=== PATIENT | female | born 1945 | race Caucasian/White ===

== ENCOUNTER 2021-05-17 14:09 | Emergency (ER) | payer MEDICAID, OTHER ==
[~2021-05-17] VITALS: Ht 167.6 cm; Wt 70.3 kg
[2021-05-17 16:33] VITALS: BP 128/53
== END 2021-05-17 17:09 | disposition short-term general hospital (02) ==
LOC: ER 14:09 → EDBD 14:09 → ER 17:09
DX: S52.532A Colles' fracture of left radius, initial encounter for closed fracture (principal); G93.6 Cerebral edema; K21.9 Gastro-esophageal reflux disease without esophagitis; I10 Essential (primary) hypertension; Z90.49 Acquired absence of other specified parts of digestive tract; Z90.710 Acquired absence of both cervix and uterus; V43.52XA Car driver injured in collision with other type car in traffic accident, initial encounter; Y93.89 Activity, other specified; Y92.488 Other paved roadways as the place of occurrence of the external cause; Y99.8 Other external cause status
CPT/HCPCS: 70450; 71045; 73110; 74176

== ENCOUNTER 2021-07-22 11:22 | Inpatient (IN) | payer OTHER ==
[~2021-07-22] VITALS: Ht 172.7 cm; Wt 76.7 kg
[2021-07-22] MEDS ORDERED: SODIUM CHLORIDE 0.9% 500 ML IV ONE (12:00)
[2021-07-22 12:13] LABS: Basophils # (auto) 0 10 ^3/uL (0-0.2); Basophils % (auto) 0.3 % (0.0-2.0); Eosinophils # (auto) 0 10 ^3/uL (0-0.8); Eosinophils % (auto) 0.1 % (0.0-7.0); Hematocrit 36.9 % (36.0-46.0); Hemoglobin 11.9 g/dL (12.2-16.2); Lymphocytes # (auto) 0.7 10 ^3/uL (0.4-5.4); Lymphocytes % (auto) 7.1 % (10.0-50.0); Mean Corpuscular Hemoglobin 28.4 pg (28.0-32.0); Mean Corpuscular Hgb Conc. 32.2 g/dL (32.0-36.0); Mean Corpuscular Volume 88.1 fL (80.0-100.0); Monocytes # (auto) 0.2 10 ^3/uL (0-1.3); Monocytes % (auto) 2.6 % (0.0-12.0); Neutrophils # (auto) 8.6 10 ^3/uL (1.6-8.6); Neutrophils % (auto) 89.9 % (37.0-80.0); Nucleated Red Blood Cells % 0.1 %; Red Blood Cells 4.19 10^6/uL (4.0-5.20); White Blood Cell 9.6 10^3/uL (4.4-10.8)
[2021-07-22 12:27] LABS: Albumin 2.4 g/dL (3.4-5.0); Anion Gap 12 (5-15); Blood Alcohol < 3.0 mg/dL (0-5); Blood Urea Nitrogen 24 mg/dL (7-18); Calcium 8.9 mg/dL (8.5-10.1); Carbon Dioxide 24 mmol/L (21-32); Chloride 99 mmol/L (98-107); Magnesium 2.2 mg/dL (1.6-2.6); Potassium 4.1 mmol/L (3.5-5.1); Sodium 135 mmol/L (136-145)
[2021-07-22 12:33] LABS: Alanine Aminotransferase 149 U/L (13-56); Alkaline Phosphatase 82 U/L (45-117); Aspartate Aminotransferase 26 U/L (15-37); BUN/Creatinine Ratio 24.2; Bilirubin, Total 0.5 mg/dL (0.2-1.0); GFR African American 71 mL/min; GFR Non-African American 58 mL/min; Total Protein 5.8 g/dL (6.4-8.2)
[2021-07-22 12:58] LABS: Glucose 456 mg/dL (74-106)
[2021-07-22 13:01] LABS: Salicylate < 1.7 mg/dL (2.8-20.0)
[2021-07-22 13:04] LABS: Acetaminophen < 2.0 ug/mL (10-30)
[2021-07-22] MEDS ORDERED: InsuLIN REG 1unit/0.01ml Soln (100units/ml) IV ONE (13:30)
[2021-07-22 16:39] LABS: Urine Amorphous Crystal FEW /hpf (None Seen); Urine Bacteria NONE SEEN /hpf (None Seen); Urine Blood Negative /uL (Negative); Urine Mucus FEW (None Seen); Urine Specific Gravity 1.031 (1.001-1.035); Urine WBC 4 /hpf (0 - 5)
[2021-07-22 16:55] LABS: Alcohol, Urine < 3.0 mg/dL (0-10); Amphetamine Screen, Urine NEGATIVE (NEGATIVE); Barbiturate Scree,Urine NEGATIVE (NEGATIVE); Benzodiazephine Screen, Urine NEGATIVE (NEGATIVE); Cannabinoid Screen, Urine NEGATIVE (NEGATIVE); Cocaine Screen, Urine NEGATIVE (NEGATIVE); Opiate Scree,Urine NEGATIVE (NEGATIVE); Phencyclidine Screen, Urine NEGATIVE (NEGATIVE)
[2021-07-22] MEDS ORDERED: NITROGLYCERIN 0.4 MG SL TAB SL PRN (17:00)
[2021-07-22] MEDS ORDERED: ACETAMINOPHEN 500 MG TAB PO PRN (17:00)
[2021-07-22] MEDS ORDERED: MORPHINE SULFATE INJECTION 2 MG/ML SYRG IV PRN (17:00)
[2021-07-22] MEDS: SODIUM CHLORIDE 0.9% 1,000 ML IV SCH (17:00)
[2021-07-22] MEDS ORDERED: LORazepam 2MG/ML-1ML VIAL IV ONE (22:30)
[2021-07-22] MEDS ORDERED: LORazepam 2MG/ML-1ML VIAL IV PRN ×2 (22:45)
[2021-07-22] MEDS ORDERED: HALOPERIDOL LACTATE 5 MG/ML INJ VIAL IM PRN (22:45)
[2021-07-23 00:39] LABS: Folate (Folic Acid) 18.44 ng/mL (5.38-24)
[2021-07-23 05:16] LABS: Calcium 8.2 mg/dL (8.5-10.1); Potassium 3.9 mmol/L (3.5-5.1)
[2021-07-23 05:18] LABS: BUN/Creatinine Ratio 32.3
[2021-07-23] MEDS: SODIUM CHLORIDE 0.9% 1,000 ML IV SCH ×2 (06:20→19:40)
[2021-07-23] MEDS: PANTOPRAZOLE 40 MG TAB PO SCH (10:00)
[2021-07-23] MEDS ORDERED: VERA180T61 PO (10:43)
[2021-07-23] MEDS ORDERED: LEVE500T3 PO (10:43)
[2021-07-23] MEDS ORDERED: HYDR25TA5 PO (10:43)
[2021-07-23] MEDS ORDERED: cefTRIAXone 1GM/50ML D5W 50 ML IV ONE (12:00)
[2021-07-23] MEDS: HALOPERIDOL LACTATE 5 MG/ML INJ VIAL IM PRN (12:07)
[2021-07-23] MEDS ORDERED: IPRATROPIUM BROM 0.5 MG/2.5ML INH SOL NEB PRN (17:30)
[2021-07-23] MEDS ORDERED: ALBUTEROL SULF 2.5 MG/0.5ML(0.5%) NEB SOLN NEB PRN (17:30)
[2021-07-24 05:04] LABS: Magnesium 1.8 mg/dL (1.6-2.6); Potassium 3.4 mmol/L (3.5-5.1)
[2021-07-24 05:10] LABS: BUN/Creatinine Ratio 26.7
[2021-07-24 05:35] LABS: Hematocrit 39.1 % (36.0-46.0); Hemoglobin 13.4 g/dL (12.2-16.2); Mean Corpuscular Hemoglobin 29.2 pg (28.0-32.0); Mean Corpuscular Hgb Conc. 34.3 g/dL (32.0-36.0); Mean Corpuscular Volume 85.1 fL (80.0-100.0); Red Blood Cells 4.59 10^6/uL (4.0-5.20); Red Cell Distribution Width 16.3 % (11.8-14.3)
[2021-07-24 06:31] LABS: Basophils % (manual) 0 (0.0-2.0); Blast Cells 0; Eosinophils % (manual) 0 (0-7); Promyelocytes % 0; Reactive Lymphocytes 0
[2021-07-24 08:00] LABS: Band Neutrophils % (manual) 15; Lymphocytes % (manual) 6 (10.0-50.0); Metamyelocytes % 1; Monocytes % (manual) 3 (0-12); Myelocytes % 1
[2021-07-24] MEDS ORDERED: METOPROLOL TARTRATE 1MG/1ML-5ML VIAL IV ONE ×2 (09:00→10:00)
[2021-07-24] MEDS: cefTRIAXone 1GM/50ML D5W 50 ML IV SCH (09:01)
[2021-07-24] MEDS: SODIUM CHLORIDE 0.9% 1,000 ML IV SCH ×2 (09:01→22:47)
[2021-07-24] MEDS: PANTOPRAZOLE 40 MG TAB PO SCH (09:42)
[2021-07-24] MEDS: METOPROLOL SUCCINATE XL 50 MG TAB PO SCH (09:43)
[2021-07-24] MEDS: HALOPERIDOL LACTATE 5 MG/ML INJ VIAL IM PRN ×2 (10:27→17:03)
[2021-07-24] MEDS ORDERED: POTASSIUM CHL 20 Meq TABLET PO ONE (11:30)
[2021-07-24] MEDS ORDERED: LORazepam 2MG/ML-1ML VIAL IV ONE (11:55)
[2021-07-24] MEDS: DexAMETHasone 4 MG TAB PO SCH ×2 (22:00→22:46)
[2021-07-24] MEDS ORDERED: levETIRAcetam 500 MG TAB PO SCH (22:00)
[2021-07-25 05:03] LABS: BUN/Creatinine Ratio 28.6
[2021-07-25] MEDS: DexAMETHasone 4 MG TAB PO SCH ×3 (06:00→21:37)
[2021-07-25 07:02] VITALS: BP 158/68
[2021-07-25] MEDS ORDERED: HALOPERIDOL LACTATE 5 MG/ML INJ VIAL IM ONE (08:00)
[2021-07-25] MEDS ORDERED: LORazepam 2MG/ML-1ML VIAL IM ONE (08:00)
[2021-07-25] MEDS ORDERED: diphenhdrAMINE HCL 50 MG/1 ML VL IM ONE (08:00)
[2021-07-25] MEDS: cefTRIAXone 1GM/50ML D5W 50 ML IV SCH (09:08)
[2021-07-25] MEDS: METOPROLOL SUCCINATE XL 50 MG TAB PO SCH (10:00)
[2021-07-25] MEDS: PANTOPRAZOLE 40 MG TAB PO SCH (10:00)
[2021-07-25] MEDS ORDERED: POTASSIUM CHLORIDE 40 MEQ, LIDOCAINE 1% (LOCAL ANESTH.) 4 ML in SODIUM CHL 0.9% 250 ML IV ONE (11:15)
[2021-07-25] MEDS ORDERED: POTASSIUM CHL 20 Meq TABLET PO ONE (11:15)
[2021-07-25] MEDS: PANTOPRAZOLE 40 MG/10 ML VIAL INJ IV SCH (11:59)
[2021-07-25] MEDS: SODIUM CHLORIDE 0.9% 1,000 ML IV SCH (12:00)
[2021-07-26] MEDS: SODIUM CHLORIDE 0.9% 1,000 ML IV SCH ×2 (01:00→14:50)
[2021-07-26] MEDS ORDERED: dilTIAZem 25 MG/5 ML VIAL IV ONE (03:45)
[2021-07-26] MEDS: DexAMETHasone 4 MG TAB PO SCH ×3 (05:45→23:00)
[2021-07-26 05:49] VITALS: BP 132/69
[2021-07-26] MEDS ORDERED: AMIODARONE HCL 150 MG in D5W 5% 100 ML IV ONE (08:45)
[2021-07-26] MEDS ORDERED: AMIODARONE 450mg/250ml AE 250 ML IV SCH (08:45)
[2021-07-26 09:00] VITALS: BP 114/81
[2021-07-26] MEDS: cefTRIAXone 1GM/50ML D5W 50 ML IV SCH (11:42)
[2021-07-26] MEDS: PANTOPRAZOLE 40 MG/10 ML VIAL INJ IV SCH (11:42)
[2021-07-26] MEDS: METOPROLOL TARTRATE 50 MG TAB PO SCH ×2 (11:43→23:01)
[2021-07-26 13:00] VITALS: BP 145/83
[2021-07-26] MEDS ORDERED: DIGOXIN (250MCG/ML) 2 ML AMPULE IV ONE (13:30)
[2021-07-26] MEDS: AMIODARONE 450mg/250ml AE 250 ML IV SCH (15:00)
[2021-07-26 17:00] VITALS: BP 151/79
[2021-07-26 22:00] VITALS: BP 125/78
[2021-07-26] MEDS: levETIRAcetam 500 MG/5ML ORAL SOLN UD PO SCH (23:00)
[2021-07-26] MEDS: HALOPERIDOL LACTATE 5 MG/ML INJ VIAL IM PRN (23:56)
[2021-07-27] MEDS: SODIUM CHLORIDE 0.9% 1,000 ML IV SCH ×2 (03:40→17:00)
[2021-07-27 04:48] VITALS: BP 126/70
[2021-07-27] MEDS: AMIODARONE 450mg/250ml AE 250 ML IV SCH (05:45)
[2021-07-27] MEDS: DexAMETHasone 4 MG TAB PO SCH ×3 (05:54→22:14)
[2021-07-27] MEDS: HALOPERIDOL LACTATE 5 MG/ML INJ VIAL IM PRN (05:55)
[2021-07-27 08:47] VITALS: BP 143/86
[2021-07-27] MEDS: cefTRIAXone 1GM/50ML D5W 50 ML IV SCH (09:00)
[2021-07-27] MEDS ORDERED: AMIODARONE HCL 200 MG TAB PO SCH (09:00)
[2021-07-27] MEDS: AMIODARONE HCL 200 MG TAB PO SCH ×2 (09:31→22:13)
[2021-07-27] MEDS: risperiDONE 1 MG TAB PO SCH ×2 (09:31→22:13)
[2021-07-27] MEDS: levETIRAcetam 500 MG/5ML ORAL SOLN UD PO SCH ×2 (09:52→22:15)
[2021-07-27] MEDS: PANTOPRAZOLE 40 MG/10 ML VIAL INJ IV SCH (09:53)
[2021-07-27] MEDS: METOPROLOL TARTRATE 50 MG TAB PO SCH ×2 (09:53→22:31)
[2021-07-27 09:57] LABS: Basophils # (auto) 0 10 ^3/uL (0-0.2); Basophils % (auto) 0.1 % (0.0-2.0); Eosinophils # (auto) 0 10 ^3/uL (0-0.8); Hematocrit 34.1 % (36.0-46.0); Hemoglobin 11.7 g/dL (12.2-16.2); Lymphocytes # (auto) 0.4 10 ^3/uL (0.4-5.4); Lymphocytes % (auto) 9.1 % (10.0-50.0); Mean Corpuscular Hemoglobin 29.1 pg (28.0-32.0); Mean Corpuscular Hgb Conc. 34.2 g/dL (32.0-36.0); Mean Corpuscular Volume 85.2 fL (80.0-100.0); Monocytes # (auto) 0.1 10 ^3/uL (0-1.3); Monocytes % (auto) 2.7 % (0.0-12.0); Neutrophils # (auto) 4.1 10 ^3/uL (1.6-8.6); Neutrophils % (auto) 88.1 % (37.0-80.0); Nucleated Red Blood Cells % 0.1 %; Red Blood Cells 4.01 10^6/uL (4.0-5.20); Red Cell Distribution Width 16.7 % (11.8-14.3); White Blood Cell 4.6 10^3/uL (4.4-10.8)
[2021-07-27 10:19] LABS: BUN/Creatinine Ratio 20.5; Calcium 8.1 mg/dL (8.5-10.1); Potassium 3.6 mmol/L (3.5-5.1)
[2021-07-27 13:00] VITALS: BP 145/85
[2021-07-27 17:00] VITALS: BP 150/84
[2021-07-28 05:00] VITALS: BP 149/89
[2021-07-28] MEDS: SODIUM CHLORIDE 0.9% 1,000 ML IV SCH ×2 (06:20→19:40)
[2021-07-28] MEDS: DexAMETHasone 4 MG TAB PO SCH ×3 (06:27→21:54)
[2021-07-28 09:00] VITALS: BP 146/83
[2021-07-28] MEDS: risperiDONE 1 MG TAB PO SCH ×2 (09:02→21:53)
[2021-07-28] MEDS: cefTRIAXone 1GM/50ML D5W 50 ML IV SCH (09:07)
[2021-07-28] MEDS: PANTOPRAZOLE 40 MG/10 ML VIAL INJ IV SCH (09:53)
[2021-07-28] MEDS: AMIODARONE HCL 200 MG TAB PO SCH ×2 (09:53→21:53)
[2021-07-28] MEDS: levETIRAcetam 500 MG/5ML ORAL SOLN UD PO SCH ×2 (09:53→21:54)
[2021-07-28] MEDS: METOPROLOL TARTRATE 50 MG TAB PO SCH ×2 (09:55→21:55)
[2021-07-28 13:00] VITALS: BP 110/56
[2021-07-28 17:00] VITALS: BP 133/77
[2021-07-28 22:00] VITALS: BP 145/89
[2021-07-29 05:19] VITALS: BP 113/61
[2021-07-29] MEDS: DexAMETHasone 4 MG TAB PO SCH ×3 (05:19→21:33)
[2021-07-29 08:51] VITALS: BP 135/90
[2021-07-29] MEDS: risperiDONE 1 MG TAB PO SCH ×2 (08:52→21:32)
[2021-07-29] MEDS: cefTRIAXone 1GM/50ML D5W 50 ML IV SCH ×3 (08:52→10:37)
[2021-07-29] MEDS: SODIUM CHLORIDE 0.9% 1,000 ML IV SCH ×2 (09:11→10:11)
[2021-07-29] MEDS: PANTOPRAZOLE 40 MG/10 ML VIAL INJ IV SCH (10:16)
[2021-07-29] MEDS: METOPROLOL TARTRATE 50 MG TAB PO SCH ×2 (10:29→21:34)
[2021-07-29] MEDS: levETIRAcetam 500 MG/5ML ORAL SOLN UD PO SCH ×2 (10:30→21:33)
[2021-07-29] MEDS: AMIODARONE HCL 200 MG TAB PO SCH ×2 (10:33→21:33)
[2021-07-29 12:48] VITALS: BP 141/81
[2021-07-29 17:00] VITALS: BP 141/93
[2021-07-29 22:00] VITALS: BP 131/69
[2021-07-30 05:00] VITALS: BP 144/77
[2021-07-30] MEDS: DexAMETHasone 4 MG TAB PO SCH ×3 (05:15→20:42)
[2021-07-30 06:17] LABS: BUN/Creatinine Ratio 27.4; Calcium 8.1 mg/dL (8.5-10.1); Magnesium 2.2 mg/dL (1.6-2.6); Potassium 4.3 mmol/L (3.5-5.1)
[2021-07-30 08:30] VITALS: BP 111/45
[2021-07-30] MEDS: risperiDONE 1 MG TAB PO SCH ×2 (08:59→20:41)
[2021-07-30] MEDS: PANTOPRAZOLE 40 MG/10 ML VIAL INJ IV SCH (09:52)
[2021-07-30] MEDS: levETIRAcetam 500 MG/5ML ORAL SOLN UD PO SCH ×2 (09:53→20:42)
[2021-07-30] MEDS: AMIODARONE HCL 200 MG TAB PO SCH ×2 (09:53→20:42)
[2021-07-30] MEDS: METOPROLOL TARTRATE 50 MG TAB PO SCH ×2 (09:54→20:43)
[2021-07-30] MEDS: SODIUM CHLORIDE 0.9% 1,000 ML IV SCH (12:00)
[2021-07-30 13:00] VITALS: BP 128/74
[2021-07-30 16:48] VITALS: BP 128/66
[2021-07-30] MEDS ORDERED: cefTRIAXone 1GM/50ML D5W 50 ML IV SCH (18:00)
[2021-07-30] MEDS: cefTRIAXone 1GM/50ML D5W 50 ML IV SCH (18:01)
[2021-07-30 22:10] VITALS: BP 101/47
[2021-07-31 05:00] VITALS: BP 145/71
[2021-07-31] MEDS: DexAMETHasone 4 MG TAB PO SCH ×3 (05:36→22:17)
[2021-07-31 08:00] VITALS: BP 122/74
[2021-07-31] MEDS: levETIRAcetam 500 MG/5ML ORAL SOLN UD PO SCH ×2 (09:14→22:17)
[2021-07-31] MEDS: PANTOPRAZOLE 40 MG/10 ML VIAL INJ IV SCH (09:14)
[2021-07-31] MEDS: risperiDONE 1 MG TAB PO SCH ×2 (09:14→22:15)
[2021-07-31] MEDS: AMIODARONE HCL 200 MG TAB PO SCH ×2 (09:15→22:15)
[2021-07-31] MEDS: METOPROLOL TARTRATE 50 MG TAB PO SCH ×2 (09:16→22:18)
[2021-07-31] MEDS: SODIUM CHLORIDE 0.9% 1,000 ML IV SCH (11:54)
[2021-07-31 12:56] VITALS: BP 149/76
[2021-07-31 16:59] VITALS: BP 130/78
[2021-07-31] MEDS: cefTRIAXone 1GM/50ML D5W 50 ML IV SCH (17:17)
[2021-07-31 22:00] VITALS: BP 144/87
[2021-08-01] MEDS: SODIUM CHLORIDE 0.9% 1,000 ML IV SCH ×3 (03:40→17:00)
[2021-08-01 05:00] VITALS: BP 157/77
[2021-08-01] MEDS: DexAMETHasone 4 MG TAB PO SCH ×3 (06:02→22:38)
[2021-08-01 09:00] VITALS: BP 165/86
[2021-08-01] MEDS: PANTOPRAZOLE 40 MG/10 ML VIAL INJ IV SCH (09:15)
[2021-08-01] MEDS: risperiDONE 1 MG TAB PO SCH ×2 (09:15→22:37)
[2021-08-01] MEDS: METOPROLOL TARTRATE 50 MG TAB PO SCH ×2 (09:16→22:39)
[2021-08-01] MEDS: levETIRAcetam 500 MG/5ML ORAL SOLN UD PO SCH ×2 (09:16→22:38)
[2021-08-01] MEDS: AMIODARONE HCL 200 MG TAB PO SCH ×2 (09:16→22:38)
[2021-08-01 13:00] VITALS: BP 147/84
[2021-08-01 17:00] VITALS: BP 176/98
[2021-08-01] MEDS: cefTRIAXone 1GM/50ML D5W 50 ML IV SCH (17:06)
[2021-08-01 17:25] VITALS: BP 150/88
[2021-08-01 21:44] VITALS: BP 174/92
[2021-08-02 05:04] VITALS: BP 165/84
[2021-08-02 05:24] VITALS: BP 135/73
[2021-08-02] MEDS: DexAMETHasone 4 MG TAB PO SCH ×3 (06:03→22:40)
[2021-08-02] MEDS: SODIUM CHLORIDE 0.9% 1,000 ML IV SCH ×2 (06:09→18:05)
[2021-08-02] MEDS: risperiDONE 1 MG TAB PO SCH ×2 (08:50→22:39)
[2021-08-02] MEDS: PANTOPRAZOLE 40 MG/10 ML VIAL INJ IV SCH (08:51)
[2021-08-02] MEDS: levETIRAcetam 500 MG/5ML ORAL SOLN UD PO SCH ×2 (08:51→22:40)
[2021-08-02] MEDS: AMIODARONE HCL 200 MG TAB PO SCH ×2 (08:51→22:39)
[2021-08-02] MEDS: METOPROLOL TARTRATE 50 MG TAB PO SCH ×2 (08:51→22:42)
[2021-08-02 09:00] VITALS: BP 157/92
[2021-08-02 17:00] VITALS: BP 165/93
[2021-08-02] MEDS: cefTRIAXone 1GM/50ML D5W 50 ML IV SCH (18:05)
[2021-08-02 22:00] VITALS: BP 142/75
[2021-08-03 05:00] VITALS: BP 147/76
[2021-08-03] MEDS: DexAMETHasone 4 MG TAB PO SCH ×3 (06:58→22:36)
[2021-08-03 09:00] VITALS: BP 121/70
[2021-08-03] MEDS: risperiDONE 1 MG TAB PO SCH ×2 (10:23→22:35)
[2021-08-03] MEDS: PANTOPRAZOLE 40 MG/10 ML VIAL INJ IV SCH (10:23)
[2021-08-03] MEDS: SODIUM CHLORIDE 0.9% 1,000 ML IV SCH ×2 (10:23→22:36)
[2021-08-03] MEDS: AMIODARONE HCL 200 MG TAB PO SCH ×2 (10:24→22:36)
[2021-08-03] MEDS: levETIRAcetam 500 MG/5ML ORAL SOLN UD PO SCH ×2 (10:24→22:36)
[2021-08-03] MEDS: METOPROLOL TARTRATE 50 MG TAB PO SCH ×2 (10:36→22:36)
[2021-08-03 13:00] VITALS: BP 139/77
[2021-08-03 17:00] VITALS: BP 158/83
[2021-08-03] MEDS: cefTRIAXone 1GM/50ML D5W 50 ML IV SCH (17:40)
[2021-08-03 22:00] VITALS: BP 132/88
[2021-08-04 05:00] VITALS: BP 124/71
[2021-08-04] MEDS: DexAMETHasone 4 MG TAB PO SCH ×3 (06:30→22:01)
[2021-08-04 09:00] VITALS: BP 136/87
[2021-08-04] MEDS: levETIRAcetam 500 MG/5ML ORAL SOLN UD PO SCH ×2 (09:57→22:01)
[2021-08-04] MEDS: risperiDONE 1 MG TAB PO SCH ×2 (09:57→22:00)
[2021-08-04] MEDS: AMIODARONE HCL 200 MG TAB PO SCH ×2 (09:57→22:00)
[2021-08-04] MEDS: PANTOPRAZOLE 40 MG/10 ML VIAL INJ IV SCH (09:57)
[2021-08-04] MEDS: METOPROLOL TARTRATE 50 MG TAB PO SCH ×2 (10:15→22:02)
[2021-08-04] MEDS: SODIUM CHLORIDE 0.9% 1,000 ML IV SCH (11:40)
[2021-08-04 13:00] VITALS: BP 151/65
[2021-08-04 17:00] VITALS: BP 151/78
[2021-08-04] MEDS: cefTRIAXone 1GM/50ML D5W 50 ML IV SCH (17:38)
[2021-08-04 22:00] VITALS: BP 141/74
[2021-08-05 05:00] VITALS: BP 141/85
[2021-08-05] MEDS: SODIUM CHLORIDE 0.9% 1,000 ML IV SCH (05:58)
[2021-08-05] MEDS: DexAMETHasone 4 MG TAB PO SCH ×2 (06:13→13:14)
[2021-08-05] MEDS: risperiDONE 1 MG TAB PO SCH (08:21)
[2021-08-05 09:00] VITALS: BP 107/67
[2021-08-05] MEDS: PANTOPRAZOLE 40 MG/10 ML VIAL INJ IV SCH (10:33)
[2021-08-05] MEDS: levETIRAcetam 500 MG/5ML ORAL SOLN UD PO SCH (10:34)
[2021-08-05] MEDS: AMIODARONE HCL 200 MG TAB PO SCH (10:34)
[2021-08-05] MEDS: METOPROLOL TARTRATE 50 MG TAB PO SCH (10:36)
[2021-08-05 12:47] VITALS: BP 126/70
[2021-08-05 14:04] VITALS: BP 153/72
== END 2021-08-05 14:20 | disposition hospice, home (50) | DRG 917 ==
LOC: ER 11:22 → TELE 17:00 → TELE-WESTW 07-25 15:51
PROVIDERS: ADMIT Nurse Practitioner Acute Care; ATTEND Internal Medicine Geriatric Medicine
PROC: 05HA33Z Insertion of Infusion Device into Left Brachial Vein, Percutaneous Approach (ICD-10-PCS; principal; 2021-07-25)
PROC: B54NZZA Ultrasonography of Left Upper Extremity Veins, Guidance (ICD-10-PCS; 2021-07-25)
DX: T42.6X1A Poisoning by other antiepileptic and sedative-hypnotic drugs, accidental (unintentional), initial encounter (principal); G93.41 Metabolic encephalopathy; E43 Unspecified severe protein-calorie malnutrition; C71.9 Malignant neoplasm of brain, unspecified; N39.0 Urinary tract infection, site not specified; R73.9 Hyperglycemia, unspecified; F03.90 Unspecified dementia, unspecified severity, without behavioral disturbance, psychotic disturbance, mood disturbance, and anxiety; I10 Essential (primary) hypertension; T38.0X1A Poisoning by glucocorticoids and synthetic analogues, accidental (unintentional), initial encounter; Z20.822 Contact with and (suspected) exposure to COVID-19; G40.909 Epilepsy, unspecified, not intractable, without status epilepticus; F32.9 Major depressive disorder, single episode, unspecified; E87.6 Hypokalemia; K21.9 Gastro-esophageal reflux disease without esophagitis; I48.91 Unspecified atrial fibrillation; Z78.1 Physical restraint status; Z79.899 Other long term (current) drug therapy; Z90.710 Acquired absence of both cervix and uterus; Z90.49 Acquired absence of other specified parts of digestive tract; Z68.25 Body mass index [BMI] 25.0-25.9, adult; Y92.89 Other specified places as the place of occurrence of the external cause
CPT/HCPCS: 36415; 70450; 80048; 80053; 80307; 80320; 80329; 81001; 82607; 82746; 82962; 83036; 83735; 84443; 85007; 85025; 85027; 87426; 93005; 93306; 96361; 96365; 96372; 96375; 97110; 97116; 97163; 97530; C9113; G0378; J0696; J2001; J7060